=== PATIENT | female | born 1965 | race African-American/Black ===

== ENCOUNTER 2019-05-10 17:37 | Emergency (ER) | payer MEDICAID ==
[~2019-05-10] VITALS: Ht 167.6 cm; Wt 87.0 kg
[~2019-05-10 17:37] MED LIST: ACET-2178 PO; CHOL100046 PO; CYCL5TAB PO; DIPH25CA83 PO; DOCU-150 PO; GABA-290 PO; HYDR-4005 PO; IBUP-2030 PO; LORA10TA7 PO; OMEP40CA34 PO
[2019-05-10] MEDS ORDERED: ONDANSETRON HCL 4MG/2ML INJ IV STA (18:52)
[2019-05-10] MEDS ORDERED: MORPHINE SULFATE 4 MG/ML CPJ (NOT FOR IM USE) IV STA (18:52)
[2019-05-10] MEDS ORDERED: SODIUM CHLORIDE 0.9% 1,000 ML IV ONE ×2 (18:52→23:14)
[2019-05-10] MEDS ORDERED: ASPIRIN 81MG TABLET PO ONE (19:00)
[2019-05-10] MEDS ORDERED: NITROGLYCERIN 0.4MG TABLET SL SL PRN (19:00)
[2019-05-10 19:21] LABS: BASOPHILS % 0.9 % (0.0-2.0); EOSINOPHILS % 3.8 % (0.0-5.0); HEMATOCRIT. 38.9 % (36.0-48.0); HEMOGLOBIN. 13.1 g/dL (12.0-16.0); MEAN CORPUSCULAR HEMOGLOBIN 31.8 pg (28.0-32.0); MEAN CORPUSCULAR VOLUME 94.6 fL (81.0-99.0); MEAN PLATELET VOLUME 9.4 fl (7.4-10.4); MONOCYTES % 9.7 % (2.0-8.0); NEUTROPHILS % 50.6 % (40.0-76.0); PLATELET 234 x1000/uL (130-400); RED BLOOD CELL COUNT 4.11 mill/uL (4.2-5.4)
[2019-05-10 19:28] LABS: CHLORIDE 108 mEq/L (98-107)
[2019-05-10 19:33] LABS: D-DIMER < 0.19 mg/L FEU (<0.50); PARTIAL THROMBOPLASTIN TIME 27.8 sec (23.4-31.0)
[2019-05-11 01:28] VITALS: BP 97/62
== END 2019-05-11 01:50 | disposition home or self-care (01) ==
LOC: ER 17:56 → EDBEDREQ 20:22 → EDBEDREQTM 20:22 → ER 05-11 01:50 → CANBEDREQ 05-11 02:04
DX: R07.89 Other chest pain (principal); M25.561 Pain in right knee; R03.0 Elevated blood-pressure reading, without diagnosis of hypertension; Z87.39 Personal history of other diseases of the musculoskeletal system and connective tissue; Z79.899 Other long term (current) drug therapy
CPT/HCPCS: 36415; 71045; 73560; 80053; 83690; 83880; 84484; 84550; 85025; 85379; 85610; 85730; 93005; 93970; 96374; 96375; 99284; J2270; J2405; J7030; Z7610